=== PATIENT | female | born 1950 | race African-American/Black ===

== ENCOUNTER 2020-12-07 06:48 | Day surgery (SDC) | payer OTHER ==
[2020-12-05 15:34] VITALS: BMI 28.5
[2020-12-07 07:21] VITALS: TEMP 98.4
[2020-12-07] MEDS ORDERED: PROPOFOL 20 ML ONE ×3 (08:10→08:25)
[2020-12-07] MEDS ORDERED: LIDOCAINE HCL/PF 2% SDV 5ML VIAL ONE (08:10)
[2020-12-07 09:26] VITALS: BP 128/56; PULSE 80
== END 2020-12-07 09:27 | disposition home or self-care (01) ==
LOC: FASU-ENDO 06:48
PROVIDERS: ATTEND Internal Medicine Gastroenterology
PROC: 0DB98ZX Excision of Duodenum, Via Natural or Artificial Opening Endoscopic, Diagnostic (ICD-10-PCS; 2020-12-07)
PROC: 0DB78ZX Excision of Stomach, Pylorus, Via Natural or Artificial Opening Endoscopic, Diagnostic (ICD-10-PCS; 2020-12-07)
PROC: 0DJD8ZZ Inspection of Lower Intestinal Tract, Via Natural or Artificial Opening Endoscopic (ICD-10-PCS; principal; 2020-12-07 08:21)
DX: Z12.11 Encounter for screening for malignant neoplasm of colon (principal); K29.50 Unspecified chronic gastritis without bleeding; K31.89 Other diseases of stomach and duodenum; Z83.71 Family history of colonic polyps
CPT/HCPCS: 43239; G0105; 88305-TC; 88342-TC